=== PATIENT | male | born 1940 | race Caucasian/White ===

== ENCOUNTER 2017-03-06 22:57 | Inpatient (IN) ==
[2017-03-06] MEDS ORDERED: 0.9 % Sodium Chloride 1,000 ML IVC ONE (23:18)
[2017-03-06 23:51] LABS: Hematocrit 27.6 % (37.5-50.1); Hemoglobin 8.7 g/dL (12.9-16.9); Mean Corpuscular HGB Conc 31.5 g/dL (31.6-35.5); Mean Corpuscular Hemoglobin 25.9 pg (28.0-33.3); Mean Corpuscular Volume 82.1 fL (83.0-100.0); Mean Platelet Volume 9.7 fL (9.4-12.4); Platelet Count 149 K/mcL (140-400); Red Blood Count 3.36 M/mcL (4.19-5.50); Red Cell Distribution Width 21.1 % (11.5-14.5)
[2017-03-06 23:56] LABS: INR 1.1; Prothrombin Time 11.6 Seconds (9.4-12.1)
[2017-03-06 23:58] LABS: Activated Partial Thrombo Time 53.3 Seconds (26.0-36.0)
[2017-03-07 00:05] LABS: Alanine Aminotransferase 32 Units/L (0-55); Albumin 2.3 g/dL (3.5-5.0); Albumin/Globulin Ratio 0.7 (1.1-2.2); Alkaline Phosphatase 97 Units/L (38-126); Aspartate Amino Transferase 24 Units/L (5-34); BUN/Creatinine Ratio 35 (6-26); Bilirubin,Direct 0.3 mg/dL (0.0-0.5); Bilirubin,Indirect 0.5 mg/dL (0.0-1.2); Bilirubin,Total 0.8 mg/dL (0.2-1.2); Blood Urea Nitrogen 27 mg/dL (8-26); Calcium 8.2 mg/dL (8.6-10.8); Carbon Dioxide 25 mEq/L (19-29); Chloride 102 mEq/L (98-109); Globulin 3.2 g/dL (2.4-3.5); Glucose 152 mg/dL (70-99); Magnesium 1.6 mg/dL (1.6-2.6); Osmolality,Calculated 284 (280-300); Phosphorous 2.2 mg/dL (2.3-4.7); Potassium 3.6 mEq/L (3.5-4.5); Sodium 133 mEq/L (136-145); Total Protein 5.5 g/dL (6.0-8.3); eGFR For African Americans > 60 (> 60); eGFR For Non-African Americans > 60 (> 60)
[2017-03-07 00:09] LABS: Anisocytosis 2+ (Not Present); Microcytosis Present (Not Present); Platelet Estimate Normal (Normal); Reactive Lymphocytes Present (Not Present)
[2017-03-07 00:10] LABS: Polychromasia 1+ (Not Present)
[2017-03-07 00:16] LABS: Lymphocytes # 0.8 K/mcL (0.6-4.6)
--- NOTE | 2017-03-07 00:30 | Emergency Department Note ---
Disposition Clinical Impression: Anemia Disposition: Admitted As Inpatient Condition: Fair Referrals: NONE,PCP [Non-Partnered Physician] - Forms: Work/School Release, ED Satisfaction Letter Time of Disposition: 02:16 General Adult HPI - General Chief complaint: ED General Medical Stated complaint: low BP Time Seen by Provider: 03/06/17 23:12 Source: patient, EMS Mode of arrival: private vehicle Limitations: no limitations Nursing Notes Reviewed: Yes Vital Signs Reviewed: Yes ( ) - History of Present Illness HPI Narrative: 76-year-old male presents to the emergency department from an extended care facility with complaint of low blood pressure. 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 Patient states that he has a feeding tube in place and "they gave me too much food and after it back up." Patient states that while at the [facility] facility they checked his blood pressure and was sent to the emergency department via EMS for further evaluation. Patient has no additional complaints or concerns. He denies any chest pain, shortness of breath, dizziness, lightheadedness. Patient requesting that he be sent back to the facility. Onset (ago): Just [employer] Radiation: non-radiation Pain Scale: 0 Improves with: nothing Worsens with: nothing Associated symptoms: Reports: denies other symptoms Treatments Prior to Arrival: none - Related Data Home Medications Medication Instructions Recorded Confirmed Aspirin 81 mg PO DAILY 11/04/16 02/21/17 Clopidogrel [Plavix] 75 mg PO DAILY 11/04/16 02/21/17 Doxazosin Mesylate [Cardura] 2 mg PO HS 11/04/16 02/21/17 Finasteride [Proscar] 5 mg PO DAILY 11/04/16 02/21/17 Losartan [Cozaar] 25 mg PO DAILY 11/04/16 02/21/17 Metformin HCl [Glucophage] 1,000 mg PO BID 11/04/16 02/21/17 Metoprolol [Lopressor] 50 mg PO BID 11/04/16 02/21/17 Mupirocin Calcium [Bactroban] 1 appl TP TID 11/04/16 02/21/17 Pantoprazole Sodium [Protonix] 40 mg PO DAILY 11/04/16 02/21/17 Simvastatin [Zocor] 40 mg PO HS 11/04/16 02/21/17 Sitagliptin Phosphate [Januvia] 50 mg PO DAILY 11/04/16 02/21/17 Travoprost [Travatan Z] 5 ml OP DAILY 12/20/16 02/21/17 Dorzolamide/Timolol/Pf [Cosopt Pf 1 each OP BID 01/12/17 02/21/17 Eye Drops] Previous Rx's Medication Instructions Recorded Sucralfate [Carafate] 1 gm PO QID #1000 ml 12/20/16 Metoclopramide HCl 5 mg PO QIDAC #120 tablet 01/03/17 LORazepam [Ativan] 1 mg PO Q4HR PRN #30 tablet 01/12/17 Promethazine [Phenergan] 25 mg PO Q6HR PRN #60 tablet 01/12/17 Lactose-Reduced Food [Boost] 237 ml PO BID #60 liquid 01/13/17 Docusate [Colace] 100 mg PO BID #60 capsule 01/16/17 Magic Mouthwash [Magic Mouthwash 10 ml PO QID PRN #473 ml 02/07/17 BLM] Potassium Chloride [K-Tab ER] 20 meq PO BID #60 tablet.er 02/14/17 Morphine Sulfate [Morphine Oral 5 ml PO Q4H PRN #250 ml 02/20/17 Solution] Allergies Allergy/AdvReac Type Severity Reaction Status Date / Time No Known Allergies Allergy Verified 02/20/17 09:08 All systems ED: reviewed and negative except as stated. Constitutional: Denies: fever, chills Cardiovascular: Denies: chest pain, palpitations Respiratory: Denies: cough, dyspnea Gastrointestinal: Denies: abdominal pain, nausea, vomiting Musculoskeletal: Denies: back pain, neck pain Integumentary: Denies: rash, abrasion, lesions Neurological: Denies: headache Psychiatric: Denies: anxiety, depression, suicidal thoughts, homicidal thoughts Endocrine: Denies: fatigue Past Medical History - Past Medical History Attestation: Yes The following information was validated with the patient. Source: patient, nursing notes reviewed Medical history: Reports: arthritis, coronary artery disease, diabetes, GERD, hypertension Surgical history: Reports: angioplasty/stent, cataract Psychiatric history: Reports: no psych history - Social History Smoking Status: Never smoker Smokeless Tobacco Status: No Alcohol use: Reports: none Drug use: Reports: none Physical Exam - General Limitations: no limitations General appearance: alert, in no apparent distress - Head Head exam: atraumatic, normocephalic, normal inspection - Eye Eye exam: Present: normal appearance, PERRL - Neck Neck exam: Present: normal inspection, full ROM, trachea midline - Chest Chest inspection: Present: normal inspection, symmetric chest wall rise - Respiratory Respiratory exam: Present: normal lung sounds bilaterally. Absent: respiratory distress - Cardiovascular Cardiovascular exam: Present: regular rate, normal rhythm, normal heart sounds - Abdominal Exam Abdominal exam: Present: soft, Non-Tender, normal bowel sounds - Rectal Exam Rectal exam: Present: normal inspection, normal rectal tone - Extremities Exam Extremities exam: Present: normal inspection, full ROM. Absent: tenderness, pedal edema - Expanded Lower Extremity Exam Gait: observed and normal - Back Exam Back exam: Present: normal inspection, full ROM. Absent: tenderness - Neurological Exam Neurological exam: Present: alert, oriented X3 - Psychiatric Psychiatric exam: Present: normal affect, normal mood - Skin Skin exam: Present: warm, dry, intact, normal color Course Course Narrative: Patient admitted to hospitalist. Vital Signs Temperature 97.5 F L 03/06/17 23:00 Pulse Rate 108 03/06/17 23:00 Respiratory Rate 18 03/06/17 23:00 Blood Pressure 109/55 03/06/17 23:00 O2 Sat by Pulse Oximetry 98 03/06/17 23:00 Temperature 97.5 F L 03/06/17 23:00 Pulse Rate 93 03/07/17 01:07 Respiratory Rate 12 03/07/17 01:07 Blood Pressure 136/71 03/07/17 01:07 O2 Sat by Pulse Oximetry 98 03/07/17 01:07 Oxygen Delivery Oxygen Delivery Room Air Medical Decision Making - Lab Data Lab results reviewed: Yes I reviewed the patient's lab results. Result diagrams: 03/06/17 23:42 03/06/17 23:42 Lab Results 03/06/17 03/06/17 03/06/17 Range/Units 23:42 23:42 23:42 WBC 3.4 L (4.3-11.1) K/mcL RBC 3.36 L (4.19-5.50) M/mcL Hgb 8.7 L (12.9-16.9) g/dL Hct 27.6 L (37.5-50.1) % MCV 82.1 L (83.0-100.0) fL MCH 25.9 L (28.0-33.3) pg MCHC 31.5 L (31.6-35.5) g/dL RDW 21.1 H (11.5-14.5) % Plt Count 149 (140-400) K/mcL MPV 9.7 (9.4-12.4) fL Immature Gran % Test Not Performed Seg Neutrophils % 58.0 % Lymphocytes % 22.0 % Monocytes % Test Not Performed Eosinophils % Test Not Performed Basophils % Test Not Performed Neutrophils # 2.0 (1.6-8.9) K/mcL Lymphocytes # 0.8 (0.6-4.6) K/mcL Monocytes # TISSUE PACKER Eosinophils # TISSUE PACKER Basophils # TISSUE PACKER Reactive Lymphocytes Present A (Not Present) Platelet Estimate Normal (Normal) Polychromasia 1+ A (Not Present) Anisocytosis 2+ A (Not Present) Microcytosis Present A (Not Present) PT 11.6 (9.4-12.1) Seconds INR 1.1 APTT 53.3 H (26.0-36.0) Seconds Sodium 133 L (136-145) mEq/L Potassium 3.6 (3.5-4.5) mEq/L Chloride 102 (98-109) mEq/L Carbon Dioxide 25 (19-29) mEq/L BUN 27 H (8-26) mg/dL Creatinine 0.77 (0.72-1.25) mg/dL Est GFR ( Amer) > 60 (> 60) Est GFR (Non-Af Amer) > 60 (> 60) BUN/Creatinine Ratio 35 H (6-26) Glucose 152 H (70-99) mg/dL Calculated Osmolality 284 (280-300) Lactic Acid (0.5-2.2) mmol/L Calcium 8.2 L (8.6-10.8) mg/dL Phosphorus 2.2 L (2.3-4.7) mg/dL Magnesium 1.6 (1.6-2.6) mg/dL Total Bilirubin 0.8 (0.2-1.2) mg/dL Direct Bilirubin 0.3 (0.0-0.5) mg/dL Indirect Bilirubin 0.5 (0.0-1.2) mg/dL AST 24 (5-34) Units/L ALT 32 (0-55) Units/L Alkaline Phosphatase 97 (38-126) Units/L Troponin I (0-0.03) ng/mL Serum Total Protein 5.5 L (6.0-8.3) g/dL Albumin 2.3 L (3.5-5.0) g/dL Globulin 3.2 (2.4-3.5) g/dL Albumin/Globulin Ratio 0.7 L (1.1-2.2) Stool Occult Blood (Negative) 03/06/17 03/06/17 03/07/17 Range/Units 23:42 23:42 01:55 WBC (4.3-11.1) K/mcL RBC (4.19-5.50) M/mcL Hgb (12.9-16.9) g/dL Hct (37.5-50.1) % MCV (83.0-100.0) fL MCH (28.0-33.3) pg MCHC (31.6-35.5) g/dL RDW (11.5-14.5) % Plt Count (140-400) K/mcL MPV (9.4-12.4) fL Immature Gran % Seg Neutrophils % % Lymphocytes % % Monocytes % Eosinophils % Basophils % Neutrophils # (1.6-8.9) K/mcL Lymphocytes # (0.6-4.6) K/mcL Monocytes # Eosinophils # Basophils # Reactive Lymphocytes (Not Present) Platelet Estimate (Normal) Polychromasia (Not Present) Anisocytosis (Not Present) Microcytosis (Not Present) PT (9.4-12.1) Seconds INR APTT (26.0-36.0) Seconds Sodium (136-145) mEq/L Potassium (3.5-4.5) mEq/L Chloride (98-109) mEq/L Carbon Dioxide (19-29) mEq/L BUN (8-26) mg/dL Creatinine (0.72-1.25) mg/dL Est GFR ( Amer) (> 60) Est GFR (Non-Af Amer) (> 60) BUN/Creatinine Ratio (6-26) Glucose (70-99) mg/dL Calculated Osmolality (280-300) Lactic Acid 1.6 (0.5-2.2) mmol/L Calcium (8.6-10.8) mg/dL Phosphorus (2.3-4.7) mg/dL Magnesium (1.6-2.6) mg/dL Total Bilirubin (0.2-1.2) mg/dL Direct Bilirubin (0.0-0.5) mg/dL Indirect Bilirubin (0.0-1.2) mg/dL AST (5-34) Units/L ALT (0-55) Units/L Alkaline Phosphatase (38-126) Units/L Troponin I 0.01 (0-0.03) ng/mL Serum Total Protein (6.0-8.3) g/dL Albumin (3.5-5.0) g/dL Globulin (2.4-3.5) g/dL Albumin/Globulin Ratio (1.1-2.2) Stool Occult Blood Negative (Negative) - Radiology Data Radiology results reviewed: Yes I reviewed the patient's radiology results.
[2017-03-07] MEDS ORDERED: Pantoprazole 40 MG VIAL IVP ONE (00:45)
[2017-03-07] MEDS: Pantoprazole 40 MG in 0.9 % Sodium Chloride Mini Bag 100 ML IVC SCH ×5 (01:30→20:44)
[2017-03-07] MEDS ORDERED: Ondansetron 4 MG/2 ML VIAL IVP PRN (02:40)
[2017-03-07] MEDS ORDERED: Naloxone 0.4 MG/ML INJ IVP PRN (02:40)
[2017-03-07] MEDS ORDERED: Dextrose Gel 15 GM PO PRN ×2 (02:43)
[2017-03-07] MEDS ORDERED: *HR* Dextrose 50 % in Water (Syg) 50 ML SYRINGE IVP PRN (02:43)
[2017-03-07] MEDS ORDERED: D5% in Water 1,000 ML IVC PRN (02:43)
[2017-03-07] MEDS: 0.9 % Sodium Chloride 1,000 ML IVC SCH ×3 (03:36→23:30)
--- NOTE | 2017-03-07 03:40 | Internal Med History&Physical ---
Date of Encounter: 03/07/17 Time of Encounter: 02:00 Assessment and Plan (1) On tube feeding diet Current visit: Yes Status: Acute The patient was placed on NG tube in [facility]. Tube feeding started there but patient seems not tolerate well. Chest x-ray today recommend advancing the tube. - Patient has poor intake for weeks. - Previous chart was reviewed. Patient was seen by oncology and GI in our hospital. Has been planned for esophageal stent. - Patient may need a PEG tube or esophageal stent. We will consult oncology and GI for further management. - We will consult vacuum drier tender as well. (2) Diabetes Current visit: Yes Status: Acute Will cover patient with sliding scale. 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 By mouth medication is on hold at this point because of nothing by mouth. Continue close monitoring Qualifiers: Coronary Disease-Associated Artery/Lesion type: [place] artery [place] vs. transplanted heart: [place] heart Associated angina: without angina Qualified Code(s): I25.10 - Atherosclerotic heart disease of [place] coronary artery without angina pectoris (4) DVT prophylaxis Current visit: Yes Status: Acute Heparin subcutaneously (5) Adenocarcinoma of esophagus Current visit: No Status: Acute Patient is on chemotherapy and radiation therapy. We will consult oncology for further management. (6) Anemia Current visit: Yes Status: Acute Guaiac test negative. Probably due to poor intake and chemotherapy. - We will place anemia Workup and follow result. - Closer monitor H&H Qualifiers: Anemia type: unspecified type Qualified Code(s): D64.9 - Anemia, unspecified (7) Dehydration Current visit: Yes Status: Acute Patient had hypotension and dizziness. Poor intake for weeks. Elevated BUN. Consider dehydration. - We will continue IV fluid and follow-up BMP. - Closer monitor vital signs. Internal Medicine - H&P: HPI Chief complaint: poor intake, dizziness Admitted From: Long-term Nursing Facility Plans for Post Hospital Care: Home History of present illness: Mr. Tapia is a 76 year old male with history of CAD S/P stent, diabetes, esophagus and gastric cancer present to ER for weakness and hypotension. Patient was recently admitted to [facility] for esophageal cancer. He was placed a feeding tube in [facility]. However, per pt he cannot tolerate the tube feeding well. He has poor intake for weeks. Today patient to feel dizziness. He denies loss of consciousness or syncope. He was found hypotension in a rehabilitation center, reportedly systolic blood pressure at 70s. Patient was sent to ER and his blood pressure at 100s. Patient was found anemia. Patient was admitted for further management. Past Med Surg Social Fam HX - Past Medical History Medical history: arthritis, coronary artery disease, diabetes, GERD, hypertension, myocardial infarction Psychiatric history: no psych history - Past Surgical History Surgical History: angioplasty/stent, cataract - Social History Smoking Status: Never smoker Smokeless Tobacco Status: No Alcohol use: none Drug use: none Internal Medicine - H&P: Meds Clopidogrel [Plavix] 75 mg PO DAILY 11/04/16 [History] Doxazosin Mesylate [Cardura] 2 mg PO HS 11/04/16 [History] Finasteride [Proscar] 5 mg PO DAILY 11/04/16 [History] Losartan [Cozaar] 25 mg PO DAILY 11/04/16 [History] Metformin HCl [Glucophage] 1,000 mg PO BID 11/04/16 [History] Metoprolol [Lopressor] 50 mg PO BID 11/04/16 [History] Mupirocin Calcium [Bactroban] 1 appl TP TID 11/04/16 [History] Pantoprazole Sodium [Protonix] 40 mg PO DAILY 11/04/16 [History] RX: Aspirin 81 mg PO DAILY 11/04/16 [History] Simvastatin [Zocor] 40 mg PO HS 11/04/16 [History] Sitagliptin Phosphate [Januvia] 50 mg PO DAILY 11/04/16 [History] Sucralfate [Carafate] 1 gm PO QID #1000 ml 12/20/16 [Rx] Travoprost [Travatan Z] 5 ml OP DAILY 12/20/16 [History] RX: Metoclopramide HCl 5 mg PO QIDAC #120 tablet 01/03/17 [Rx] Dorzolamide/Timolol/Pf [Cosopt Pf Eye Drops] 1 each OP BID 01/12/17 [History] LORazepam [Ativan] 1 mg PO Q4HR PRN #30 tablet 01/12/17 [Rx] Promethazine [Phenergan] 25 mg PO Q6HR PRN #60 tablet 01/12/17 [Rx] Lactose-Reduced Food [Boost] 237 ml PO BID #60 liquid 01/13/17 [Rx] RX: Docusate [Colace] 100 mg PO BID #60 capsule 01/16/17 [Rx] RX: Magic Mouthwash [Magic Mouthwash BLM] 10 ml PO QID PRN #473 ml 02/07/17 [Rx] RX: Potassium Chloride [K-Tab ER] 20 meq PO BID #60 tablet.er 02/14/17 [Rx] Morphine Sulfate [Morphine Oral Solution] 5 ml PO Q4H PRN #250 ml 02/20/17 [Rx] 3 Allergy/AdvReac Type Severity Reaction Status Date / Time No Known Allergies Allergy Verified 02/20/17 09:08 All Systems PM: A 10-system review of systems was performed and is negative for pertinent findings except as documented above in the HPI. - Constitutional Vitals: Temp Pulse Resp BP Pulse Ox 97.5 F L 100 16 121/62 99 03/07/17 03:16 03/07/17 03:16 03/07/17 03:16 03/07/17 03:16 03/07/17 03:16 General appearance: Present: A&O X 3, no acute distress, answers questions appropriately - Head Head exam: Present: atraumatic, normocephalic - Eye Eye exam: Present: PERRL, conjuntiva pink, sclera anicteric Pupils: Present: PERRL - Neck Neck exam general surgery: Present: supple, trachea midline. Absent: lymphadenopathy - Respiratory Respiratory exam: Present: CTAB. Absent: accessory muscle use, rales, rhonchi, wheezes - Cardiovascular Cardiovascular exam: Present: RRR, +S1, +S2. Absent: diastolic murmur, gallop, rubs, systolic murmur - GI/Abdominal GI/Abdominal exam: Present: normal bowel sounds, soft, no peritoneal signs. Absent: distended, tenderness - Extremities Exam Extremities exam: Present: warm, radial pulses palpable and symmetrical. Absent : calf tenderness, cyanotic, pedal edema - Neurological Exam Neurological exam: Present: CN II-XII intact, oriented X3, no focal deficits. Absent: pronater drift, facial droop, speech deficit - Skin Skin exam: Present: dry, intact Internal Med - H&P Results - Labs CBC & Chem 7: 03/06/17 23:42 03/06/17 23:42
[2017-03-07 04:45] LABS: Bilirubin,Urine Negative (Negative); Blood,Urine Negative (Negative); Clarity,Urine Clear (Clear); Color,Urine Yellow (Yellow); Glucose,Urine (UA) Normal (Normal); Ketones,Urine 15 mg/dL (Negative); Leukocyte Esterase,Urine Negative (Negative); Nitrite,Urine Negative (Negative); Protein,Urine 30 mg/dL (Neg-Trace); Urobilinogen,Urine Normal (Normal)
[2017-03-07 04:53] LABS: Hyaline Casts,Urine None Seen per lpf (None-Few); Squamous Epithelial Cell,Urine Few per lpf (None-Few)
[2017-03-07 04:54] LABS: Bacteria,Urine Few per hpf (None-Few); RBC,Urine 0-3 per hpf (0-3); WBC,Urine 0-3 per hpf (0-3)
[2017-03-07 05:14] LABS: Basophils % 0.7 %; Eosinophils % 1.4 %; Hematocrit 27.4 % (37.5-50.1); Hemoglobin 8.6 g/dL (12.9-16.9); Immature Granulocytes % 0.3 % (0-4); Lymphocytes % 34.4 %; Mean Corpuscular HGB Conc 31.4 g/dL (31.6-35.5); Mean Corpuscular Hemoglobin 26.5 pg (28.0-33.3); Mean Corpuscular Volume 84.3 fL (83.0-100.0); Mean Platelet Volume 10.1 fL (9.4-12.4); Monocytes # 0.3 K/mcL (0.0-1.3); Monocytes % 8.7 %; Neutrophils # 1.6 K/mcL (1.6-8.9); Platelet Count 137 K/mcL (140-400); Red Blood Count 3.25 M/mcL (4.19-5.50); Red Cell Distribution Width 21.3 % (11.5-14.5); Segmented Neutrophils % 54.5 %
[2017-03-07 05:24] LABS: % Iron Saturation 24 % (20-55); BUN/Creatinine Ratio 30 (6-26); Blood Urea Nitrogen 21 mg/dL (8-26); Calcium 7.7 mg/dL (8.6-10.8); Carbon Dioxide 24 mEq/L (19-29); Chloride 104 mEq/L (98-109); Glucose 141 mg/dL (70-99); Iron 41 mcg/dL (65-175); Magnesium 1.5 mg/dL (1.6-2.6); Osmolality,Calculated 283 (280-300); Potassium 3.3 mEq/L (3.5-4.5); Sodium 134 mEq/L (136-145); Transferrin 124 mg/dL (174-364); eGFR For African Americans > 60 (> 60); eGFR For Non-African Americans > 60 (> 60)
[2017-03-07 05:32] LABS: Anisocytosis 1+ (Not Present); Microcytosis Present (Not Present); Platelet Estimate Slight Decrease (Normal); Reactive Lymphocytes Present (Not Present)
[2017-03-07 05:40] LABS: Ferritin 341 ng/ml (22-275)
[2017-03-07 05:53] LABS: Folate 7.9 ng/mL (7.0-31.4)
[2017-03-07] MEDS: *HR* Heparin 5,000 UNIT/ML VIAL SQ SCH ×2 (06:00→18:10)
[2017-03-07] MEDS: Insulin LISPRO 300 UNITS/3 ML VIAL SQ SCH ×3 (06:01→18:10)
--- NOTE | 2017-03-07 10:19 | Oncology Inp Consult Note ---
Date of Encounter: 03/07/17 Time of Encounter: 10:05 Assessment and Plan (1) Malnutrition Status: Acute Assessment and plan: - Worsening based on clinical presentation ( not solid PO intake for the last 3 weeks, persistent odinophagia), recent episode of dizziness likely due to dehydration, and labs revealing worsening albumin to 2.3, with normal values back in January 23 at the start of chemo radiation. - As discussed with Dr. Plunkett at [facility], the initial considerations for esophageal stent placement or J-tube were cancelled, in view that this would complicate his surgical procedure. Initial plan would consist on completion neoaduvant chemoradiation and complete re staging PET scan. If PET was consistent with good response, he would be considered for surgical resection. As per my conversation with Dr. Plunkett at this time in view of his acute issues he is not a surgical candidate, but once hopefully his nutritional status has improved, surgical management may be an option. His neajuvant chemoradiation management has been interrupted, so he will need to follow up with Dr. Savage and Dr. Goodman ( radiation oncology and medical oncology respectively) to discuss if resuming chemoradiation is recommended. - During the current admission, I'd recommend against esophagus stent placement or J-tube in view that would complicate potential surgical resection. - If his clinical status deteriorates, he should be transferred to [facility] for further management. - I'll inform his medical oncologist Dr. Goodman and Radiation oncologist Dr. Savage about his ongoing issues. - Consider swallow evaluation and supportive management with TPN if unable to keep the daily calory requirements. Qualifiers: Malnutrition type: protein-calorie malnutrition Protein-calorie malnutrition severity: unspecified severity Qualified Code(s): E46 - Unspecified protein-calorie malnutrition (2) Dysphagia Status: Acute Assessment and plan: - Overall worsening for solids, although still able to tolerate fluids. - As described above, consider swallow evaluation +-TPN if unable to keep daily calory requirements. Qualifiers: Dysphagia type: other dysphagia Qualified Code(s): R13.19 - Other dysphagia Code(s): R13.10 - Dysphagia, unspecified SNOMED Code(s): 32072636, 742113812 (3) Esophageal cancer Status: Acute Assessment and plan: - Started on chemoradiation on January 23 with curative intent. Chemoradiation on hold since February 13 due to worsening dysphagia and malnutrition. - As described above, please arrange for follow up with radiation oncology and medical oncology to resume chemoradiation upon discharge. Qualifiers: Malignant neoplasm of esophagus location: lower third Qualified Code(s): C15.5 - Malignant neoplasm of lower third of esophagus Code(s): C15.9 - Malignant neoplasm of esophagus, unspecified SNOMED Code(s): 928890248, 547542777 (4) HTN (hypertension) Status: Chronic Assessment and plan: - Recent episode of hypotension. Now BP running in the high 90s. He remains asymptomatic while resting. Qualifiers: Hypertension type: essential hypertension Qualified Code(s): I10 - Essential (primary) hypertension Code(s): I10 - Essential (primary) hypertension SNOMED Code(s): 96748732 (5) Diabetes Status: Acute Assessment and plan: - Recent Hb A1c within acceptable range: t 7.1. - Management as per primary team Qualifiers: Diabetes mellitus type: type 2 Diabetes mellitus complication status: without complication Diabetes mellitus watermaster insulin use: without senior living use Qualified Code(s): E11.9 - Type 2 diabetes mellitus without complications Code(s): E11.9 - Type 2 diabetes mellitus without complications SNOMED Code(s) : 52423773 - Data of Consult Requesting Physician: Timmy North MD Primary Care Provider: Forest Giles MD - Consult Narrative Reason for consult: management of esophageal cancer History of present illness: Chief complaint: dysphagia. Mr. 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 Mr. Tapia was started on neoadjuvant chemoradiation on January 23, 2017 for management of his stage II/III esophageal adenocarcinoma with carbo/taxol. He tolerated the first treatments, but his treatments on February 13 and were held due to issues related to malnutrition and dysphagia. He reports that he has not eaten any solid for the last 3 weeks at least, however he has been able to tolerate fluids and puree like diet. He reports that yesterday while in Rehab he experienced dizziness, found to be hypotensive and was transferred to our medical center for further management. He report that he has had a feeding tube in place for approximately 14 days and that recently there were issues of poor tolerance to feeding tubes, so these had to be held temporally. At tthe time of the visit he denies nausea, abdominal pain. He is being followed as outpatient by medical oncologist Dr. Goodman and radiation oncologist Dr. Savage. He was referred to Dr. Art to consider an EGD with stent placement, with the option of placing a PEG tube if the stent was not feasible. He reports that in view that a gastric ulcer was noticed, it was decided to hold off on the procedure to place a stent or PEG tube. He describes that his dysphagia is associated with odinophagia, usually at the end of the swallow process, with pain a the level of the epigastric area. His dysphagia unable to eat solids, but he tolerate fluids and puree like consistency meals. he reports having normal urinary emission and denies recent issues of constipation or diarrhea. He denies associated hematemesis, hematochezia, or melena. Upon review of his records, I noticed that his serum albumin has been decreasing gradually, with his most recent value from 03/06 down to 2.3 mg/dl. REVIEW AND SUMMARY OF OLD RECORDS: I reviewed the patient's chart, including his prior oncology notes, imaging report, staging studies, labs and chemo radiation treatments. As described above , Mr. Tapia was started on chemoradiation on January 23 and his clinical course has been complicated with recurrent issues related to malnutrition and dysphagia that has required to hold off his chemotherapy ( curative intent). Past Med Surg Social Fam HX - Past Medical History Medical history: arthritis, coronary artery disease, diabetes, GERD, hypertension, myocardial infarction Psychiatric history: no psych history - Past Surgical History Surgical History: angioplasty/stent, cataract - Social History Smoking Status: Never smoker Smokeless Tobacco Status: No Alcohol use: none Drug use: none Medications and Allergies Aspirin 81 mg PO DAILY 11/04/16 [History] Clopidogrel [Plavix] 75 mg PO DAILY 11/04/16 [History] Doxazosin Mesylate [Cardura] 2 mg PO HS 11/04/16 [History] Finasteride [Proscar] 5 mg PO DAILY 11/04/16 [History] Losartan [Cozaar] 25 mg PO DAILY 11/04/16 [History] Metformin HCl [Glucophage] 1,000 mg PO BID 11/04/16 [History] Metoprolol [Lopressor] 50 mg PO BID 11/04/16 [History] Mupirocin Calcium [Bactroban] 1 appl TP TID 11/04/16 [History] Pantoprazole Sodium [Protonix] 40 mg PO DAILY 11/04/16 [History] Simvastatin [Zocor] 40 mg PO HS 11/04/16 [History] Sitagliptin Phosphate [Januvia] 50 mg PO DAILY 11/04/16 [History] Sucralfate [Carafate] 1 gm PO QID #1000 ml 12/20/16 [Rx] Travoprost [Travatan Z] 5 ml OP DAILY 12/20/16 [History] Metoclopramide HCl 5 mg PO QIDAC #120 tablet 01/03/17 [Rx] Dorzolamide/Timolol/Pf [Cosopt Pf Eye Drops] 1 each OP BID 01/12/17 [History] Docusate [Colace] 100 mg PO BID #60 capsule 01/16/17 [Rx] Magic Mouthwash [Magic Mouthwash BLM] 10 ml PO QID PRN #473 ml 02/07/17 [Rx] Morphine Sulfate [Morphine Oral Solution] 5 ml PO Q4H PRN #250 ml 02/20/17 [Rx] 3 Allergy/AdvReac Type Severity Reaction Status Date / Time No Known Allergies Allergy Verified 02/20/17 09:08 Constitutional: Present: fatigue, malaise, weakness. Absent: fever(s), headache (s), lethargy Eyes: Absent: change in vision, discharge Nose, mouth and throat: Present: dizziness Cardiovascular: Absent: chest pain with activity, dyspnea on exertion, edema, irregular heart rhythm, leg edema Respiratory: Absent: cough, dyspnea, hemoptysis, wheezing Gastrointestinal: Present: abdominal pain, dysphagia, odynophagia. Absent: change in bowel habits, change in stool character, coffee ground emesis, constipation, fecal incontinence, hematemesis, hematochezia, melena, nausea Musculoskeletal: Absent: joint swelling Integumentary: Absent: bleeding lesions Neurological: Absent: behavioral changes, burning sensations Psychiatric: Absent: confusion Endocrine: Absent: palpitations, polydipsia Hematologic/Lymphatic: Present: as per HPI Oncology - Exam - Constitutional Vitals: Temp Pulse Resp BP Pulse Ox 98.3 F 97 17 99/55 95 03/07/17 06:29 03/07/17 06:29 03/07/17 06:29 03/07/17 06:29 03/07/17 06:29 - Head Head exam: Present: normal inspection - Eye Eye exam: Present: EOMI - ENT Additional comments: Small area of approximately 1 cm in the superior palate of white appearance, suggestive of superficial ulceration. - Neck Neck exam: Absent: lymphadenopathy, meningismus, tenderness - Respiratory Respiratory exam: Present: CTAB. Absent: prolonged expiratory phase, wheezes - Cardiovascular Cardiovascular exam: Present: RRR. Absent: gallop, irregular rhythm - GI/Abdominal GI/Abdominal exam: Present: normal bowel sounds, tenderness (Mild tenderness with palpation in the epigastriic area. no rebound tenderness. ). Absent: organomegaly, pulsatile mass - Extremities Exam Extremities exam: Present: normal inspection. Absent: pedal edema, tenderness - Psychiatric Psychiatric exam: Present: normal affect, normal mood - Skin Skin exam: Present: normal color. Absent: petechiae Oncology - Results Labs: Short CBC 03/07/17 Range/Units 04:27 WBC 2.9 L (4.3-11.1) K/mcL Hgb 8.6 L (12.9-16.9) g/dL Hct 27.4 L (37.5-50.1) % Plt Count 137 L (140-400) K/mcL Neutrophils # 1.6 (1.6-8.9) K/mcL BMP 03/07/17 04:27 Sodium 134 L Potassium 3.3 L Chloride 104 Carbon Dioxide 24 BUN 21 Creatinine 0.70 L Glucose 141 H Calcium 7.7 L Urine 03/07/17 Range/Units 04:00 Urine Color Yellow (Yellow) Urine Clarity Clear (Clear) Urine pH 7.0 (5.0-8.0) pH Units Ur Specific [place] 1.030 H (1.010-1.025) Urine Protein 30 H (Neg-Trace) mg/dL Urine Glucose (UA) Normal (Normal) mg/dL Labs revealed worsening albuminemia consistent with worsening malnutrition. Consult Discharge Plan - Plan Referrals: Forest Giles MD [Primary Care Provider] -
--- NOTE | 2017-03-07 11:47 | Internal Med Progress Note ---
<Matthieu Hill - Last Filed: 03/07/17 18:09> Date of Encounter: 03/07/17 Time of Encounter: 13:00 - Assessment and plan (1) On tube feeding diet Current Visit: Yes Status: Acute Assessment and plan: Patient is tolerating the NG tube. Oncology recommends against esophageal stent because it could complicate his surgical resection of his esophageal carcinoma. They recommend supportive therapy for now. Follow-up appointment with Dr. Goodman and Dr. Savage after discharge to resume chemotherapy. (2) Hypokalemia Current Visit: Yes Status: Acute Assessment and plan: Patient's potassium dropped from 3.6 to 3.3. Was given 40 meq K+ elixir PO once. (3) Hypomagnesemia Current Visit: Yes Status: Acute Assessment and plan: Patient's magnesium was 1.5. Was given 2 gm magnesium. (4) Anemia Current Visit: Yes Status: Acute Assessment and plan: [place] test negative. Hgb dropped from 8.7 to 8.6 since yesterday. Anemia likely secondary to poor intake and chemotherapy. Continue to monitor. Qualifiers: Anemia type: unspecified type Qualified Code(s): D64.9 - Anemia, unspecified (5) CAD (coronary artery disease) Current Visit: Yes Status: Acute Assessment and plan: Statin, aspirin, and plavix have been ordered to be resumed tomorrow morning. Qualifiers: Coronary Disease-Associated Artery/Lesion type: [place] artery [place] vs. transplanted heart: [place] heart Associated angina: without angina Qualified Code(s): I25.10 - Atherosclerotic heart disease of [place] coronary artery without angina pectoris (6) DVT prophylaxis Current Visit: Yes Status: Acute Assessment and plan: On subcutaneous heparin. (7) Dehydration Current Visit: Yes Status: Acute Assessment and plan: Creatinine has dropped from 0.77 to .70. Continue IV fluids and monitor. (8) Diabetes Current Visit: Yes Status: Acute Assessment and plan: Patient on sliding scale. Qualifiers: Diabetes mellitus type: type 2 Diabetes mellitus complication status: without complication Diabetes mellitus nursing home insulin use: without medical terminologist use Qualified Code(s): E11.9 - Type 2 diabetes mellitus without complications (9) Adenocarcinoma of esophagus Current Visit: No Status: Acute Assessment and plan: On chemo and radiation therapy. Oncology recommends against esophageal stents. Follow-up appoint with Dr. Goodman and Dr. Savage. (10) History of hypertension Current Visit: Yes Status: Acute Assessment and plan: BP home meds of lopressor and losartan on hold secondary to hypotension. - Time Spent With Patient less than 15 minutes - Subjective Interval history: Spoke to patient today and he says that he is tolerating the NG tube. He admits to some diarrhea, but he denies any blood in his stool. He also denies any fever , chills, nausea, vomiting, abdominal pain, headaches, light headedness, chest pain, shortness of breath, vision changes, or syncope. - Constitutional Vitals: Temp Pulse Resp BP Pulse Ox 99.2 F 92 18 108/62 97 03/07/17 11:42 03/07/17 11:42 03/07/17 11:42 03/07/17 11:42 03/07/17 11:42 General appearance: Present: A&O X 3, no acute distress, answers questions appropriately - Respiratory Respiratory exam: Present: CTAB. Absent: rhonchi, wheezes - Cardiovascular Cardiovascular exam: Present: +S1, +S2. Absent: JVD Additional comments: Borderline tachycardia. No murmurs appreciated. - GI/Abdominal GI/Abdominal exam: Present: normal bowel sounds, soft, tenderness. Absent: bruit, guarding, mass Additional comments: Tenderness to RLQ with deep palpation. - Extremities Exam Extremities exam: Absent: pedal edema Additional comments: Pulses intact in lower extremities bilaterally. Internal Medicine: Result - Labs CBC & Chem 7: 03/07/17 04:27 03/07/17 04:27 Labs: Short CBC 03/07/17 Range/Units 04:27 WBC 2.9 L (4.3-11.1) K/mcL Hgb 8.6 L (12.9-16.9) g/dL Hct 27.4 L (37.5-50.1) % Plt Count 137 L (140-400) K/mcL Neutrophils # 1.6 (1.6-8.9) K/mcL BMP 03/07/17 04:27 Sodium 134 L Potassium 3.3 L Chloride 104 Carbon Dioxide 24 BUN 21 Creatinine 0.70 L Glucose 141 H Calcium 7.7 L Urine 03/07/17 Range/Units 04:00 Urine Color Yellow (Yellow) Urine Clarity Clear (Clear) Urine pH 7.0 (5.0-8.0) pH Units Ur Specific [place] 1.030 H (1.010-1.025) Urine Protein 30 H (Neg-Trace) mg/dL Urine Glucose (UA) Normal (Normal) mg/dL Laboratory Tests 03/06/17 03/07/17 23:42 04:27 Magnesium 1.6 1.5 L - ABG Interpretation ABG results: PT/INR, D-dimer PT 11.6 Seconds (9.4-12.1) 03/06/17 23:42 - Impressions Impressions KUB X-Ray 03/07/17 08:52 IMPRESSION: Feeding tube tip projects at the GE junction. It could be advanced. D/ / Jaya Hernandez MD / Jaya Hernandez MD Interpreting Provider: Jaya Hernandez MD Consult Discharge Plan - Plan Referrals: Forest Giles MD [Primary Care Provider] - <Cordell Quinones - Last Filed: 03/07/17 18:16> Date of Encounter: 03/07/17 - Constitutional Vitals: Temp Pulse Resp BP Pulse Ox 97.9 F 107 18 119/66 97 03/07/17 15:22 03/07/17 15:22 03/07/17 15:22 03/07/17 15:22 03/07/17 15:22 Internal Medicine: Result - Labs CBC & Chem 7: 03/07/17 04:27 03/07/17 04:27 Labs: Short CBC 03/07/17 Range/Units 04:27 WBC 2.9 L (4.3-11.1) K/mcL Hgb 8.6 L (12.9-16.9) g/dL Hct 27.4 L (37.5-50.1) % Plt Count 137 L (140-400) K/mcL Neutrophils # 1.6 (1.6-8.9) K/mcL BMP 03/07/17 04:27 Sodium 134 L Potassium 3.3 L Chloride 104 Carbon Dioxide 24 BUN 21 Creatinine 0.70 L Glucose 141 H Calcium 7.7 L Urine 03/07/17 Range/Units 04:00 Urine Color Yellow (Yellow) Urine Clarity Clear (Clear) Urine pH 7.0 (5.0-8.0) pH Units Ur Specific [place] 1.030 H (1.010-1.025) Urine Protein 30 H (Neg-Trace) mg/dL Urine Glucose (UA) Normal (Normal) mg/dL - ABG Interpretation ABG results: PT/INR, D-dimer PT 11.6 Seconds (9.4-12.1) 03/06/17 23:42 - Impressions Impressions KUB X-Ray 03/07/17 08:52 IMPRESSION: Feeding tube tip projects at the GE junction. It could be advanced. D/ / Jaya Hernandez MD / Jaya Hernandez MD Interpreting Provider: Jaya Hernandez MD - Attending Attestation I examined this patient and my medical decision-making was reviewed with the Resident Physician. I agree with the documented findings, disposition and treatment plan as described except to the extent set forth below. Patient admitted for vomiting and nausea and poor intake. Patient stated that his NG tube feeds were increased, and this caused him to have the vomiting and nausea. He states he feels better now and says he is back to baseline. He does follow up at [facility] [place] for esophageal cancer. He is hemodynamically stable at this time. He has no other acute events or complications at this time. No other complaints. No fever. Anticipate discharge in a.m. Heart rate 107, temperature 97.9, blood pressure 119/66, O2 sat 97%. Heart S1-S2 positive. Lungs bilateral good entry. Abdomen soft nontender.
--- NOTE | 2017-03-07 11:54 | Gastroenterology Consult Note ---
<Jessica Ledesma - Last Filed: 03/07/17 11:57> Date of Encounter: 03/07/17 Time of Encounter: 11:05 - Assessment and plan (1) Adenocarcinoma of esophagus Status: Acute Assessment and plan: Patient has scope by Dr. Art 02/2017 showing the esophageal carcinoma. Patient has had dysphagia, therefore, [facility] placed a Dobhoff to facilitate tube feedings. (2) On tube feeding diet Status: Acute Assessment and plan: Discuss with Dr. Jeffers on PEG vs. stent, or reduce flow of tube feeding so patient may tolerate. - Time Spent With Patient Total time spent is greater than 50% in coordination of care (as documented) at patient's floor/unit and/or counseling patient: less than 15 minutes GI History of Present Illness - Data of Consult Patient: known to practice within the last 3 years Consult date: 03/07/17 Requesting Physician: Timmy North MD - Consult Narrative Reason for consult: PEG or esophageal stent History of present illness: Mr. Tapia is a 76 year old male with PMH of CAD S/P stent, diabetes, esophagus and gastric cancer who presented to ER for weakness and hypotension by EMS from [facility]. Patient was recently admitted to [facility] for esophageal cancer. He was placed a feeding tube in [facility]. However, per pt he cannot tolerate the tube feeding well if run at higher rate, he can tolerate rate of 45 mls, but it was set on 60 and 70 mls, per the patient, at the ECF, causing reflux. He has poor intake for weeks. He states he got out of bed to use the restroom yesterday, while seated on the commode he began to feel dizzy and notified staff. He denies loss of consciousness or syncope. He was found to be hypotensive in the ECF with a reported SBP in the 70s. a rehabilitation center, reportedly systolic blood pressure at 70s. He did have a drop in hgb since last admission at [facility] but denies noting any overt GIB. Moves bowels 3-4 x daily. Hemocult was negative. One episode of vomiting prior to arrival in ED. EGD: 02/2017 - [place] Past Med Surg Social Fam HX - Past Medical History Medical history: arthritis, coronary artery disease, diabetes, GERD, hypertension, myocardial infarction Psychiatric history: no psych history - Past Surgical History Surgical History: angioplasty/stent, cataract - Social History Smoking Status: Never smoker Smokeless Tobacco Status: No Alcohol use: none Drug use: none - Gastrointestinal NSAID use: none noted Anticoagulation Use: none noted Number of BM Per Day: 3-4 Gastrointestinal: Present: dyspepsia, nausea, vomiting - Constitutional Constitutional: weight loss - EENT Eyes: as per HPI Ears: Present: as per HPI Nose, mouth and throat: Present: dysphagia - Cardiovascular Cardiovascular ROS: Present: as per HPI - Respiratory Respiratory IM: Present: as per HPI - Neurological ROS Neurological GI: Present: dizziness - Hematologic/Lymphatic Hematologic/Lymphatic pediatric: Present: as per HPI - Musculoskeletal Musculoskeletal ROS GI: Present: as per HPI - Integumentary Integumentary GI: Present: as per HPI - Psychiatric ROS Psychiatric GI: Present: as per HPI - Endocrine Endocrine IM: Present: as per HPI - Constitutional Vitals: Temp Pulse Resp BP Pulse Ox 99.2 F 92 18 108/62 97 03/07/17 11:42 03/07/17 11:42 03/07/17 11:42 03/07/17 11:42 03/07/17 11:42 General appearance: Present: cooperative, A&O X 3, no acute distress, answers questions appropriately - Head Head exam: Present: atraumatic, normocephalic - Eye Eye exam: Present: normal appearance, sclera anicteric - ENT ENT exam: Present: mucous membranes moist Additional comments: Dobhoff in R nostril - Neck Neck exam general surgery: Present: normal inspection, trachea midline - Respiratory Respiratory exam: Present: CTAB - Cardiovascular Cardiovascular exam: Present: RRR, +S1, +S2 - GI/Abdominal GI/Abdominal exam: Present: normal bowel sounds, soft, no peritoneal signs - Rectal Rectal exam: Present: deferred - Extremities Exam Extremities exam: Present: warm - Neurological Exam Neurological exam: Present: no focal deficits - Psychiatric Psychiatric exam: Present: normal affect, normal mood - Skin Skin exam: Present: dry, intact, normal color, warm Results - Labs CBC & Chem 7: 03/07/17 04:27 03/07/17 04:27 Labs: Last Result Calcium 7.7 mg/dL (8.6-10.8) L 03/07/17 04:27 Iron 41 mcg/dL (65-175) L 03/07/17 04:27 % Saturation 24 % (20-55) 03/07/17 04:27 Transferrin 124 mg/dL (174-364) L 03/07/17 04:27 Ferritin 341 ng/ml (22-275) H 03/07/17 04:27 Troponin I 0.01 ng/mL (0-0.03) 03/06/17 23:42 Vitamin B12 285 pg/mL (213-816) 03/07/17 04:27 Folate 7.9 ng/mL (7.0-31.4) 03/07/17 04:27 Stool Occult Blood Negative (Negative) 03/07/17 01:55 Entire Visit Hgb 8.6 g/dL (12.9-16.9) L 03/07/17 04:27 Hct 27.4 % (37.5-50.1) L 03/07/17 04:27 PT 11.6 Seconds (9.4-12.1) 03/06/17 23:42 Ferritin 341 ng/ml (22-275) H 03/07/17 04:27 Total Bilirubin 0.8 mg/dL (0.2-1.2) 03/06/17 23:42 AST 24 Units/L (5-34) 03/06/17 23:42 ALT 32 Units/L (0-55) 03/06/17 23:42 Folate 7.9 ng/mL (7.0-31.4) 03/07/17 04:27 - ABG ABG results: PT/INR, D-dimer PT 11.6 Seconds (9.4-12.1) 03/06/17 23:42 - Impressions Impressions KUB X-Ray 03/07/17 08:52 IMPRESSION: Feeding tube tip projects at the GE junction. It could be advanced. D/ / Jaya Hernandez MD / Jaya Hernandez MD Interpreting Provider: Jaya Hernandez MD Consult Discharge Plan - Plan Instructions: Diabetes Mellitus Type 2 in Adults (DC), Chronic Dysphagia (DC), Chronic Hypertension (DC), Anemia (GEN) Additional Instructions: - Advised to continue NG tube feeds at 45 mL per hour - Patient advised to follow-up with medical oncologist Dr. Goodman - We will need follow-up at [facility] for surgery - Return if symptoms worsen Referrals: Forest Giles MD [Primary Care Provider] - Eladio Goodman MD [Partnered Physician] - 03/15/17 10:00 am <Rancho Jeffers - Last Filed: 03/15/17 14:28> Date of Encounter: 03/07/17 Time of Encounter: 12:00 - Time Spent With Patient Total time spent is greater than 50% in coordination of care (as documented) at patient's floor/unit and/or counseling patient: GI History of Present Illness - Data of Consult Requesting Physician: Timmy North MD - Consult Narrative History of present illness: Mr. Tapia is a 76 year old male - Constitutional Vitals: Temp Pulse Resp BP Pulse Ox 97.8 F 80 14 116/68 95 03/09/17 14:30 03/09/17 14:30 03/09/17 14:30 03/09/17 14:30 03/09/17 14:30 Results - Labs CBC & Chem 7: 03/09/17 05:17 03/09/17 05:17 Labs: Last Result Calcium 7.7 mg/dL (8.6-10.8) L 03/09/17 05:17 Iron 41 mcg/dL (65-175) L 03/07/17 04:27 % Saturation 24 % (20-55) 03/07/17 04:27 Transferrin 124 mg/dL (174-364) L 03/07/17 04:27 Ferritin 341 ng/ml (22-275) H 03/07/17 04:27 Troponin I 0.01 ng/mL (0-0.03) 03/06/17 23:42 Vitamin B12 285 pg/mL (213-816) 03/07/17 04:27 Folate 7.9 ng/mL (7.0-31.4) 03/07/17 04:27 Stool Occult Blood Negative (Negative) 03/07/17 01:55 Entire Visit Hgb 10.9 g/dL (12.9-16.9) L D 03/09/17 05:17 Hct 33.4 % (37.5-50.1) L 03/09/17 05:17 PT 12.0 Seconds (9.4-12.1) 03/08/17 05:02 Ferritin 341 ng/ml (22-275) H 03/07/17 04:27 Total Bilirubin 0.8 mg/dL (0.2-1.2) 03/06/17 23:42 AST 24 Units/L (5-34) 03/06/17 23:42 ALT 32 Units/L (0-55) 03/06/17 23:42 Folate 7.9 ng/mL (7.0-31.4) 03/07/17 04:27 E. coli (PCR) Not Detected (Not Detect) 03/06/17 23:42 - ABG ABG results: PT/INR, D-dimer PT 12.0 Seconds (9.4-12.1) 03/08/17 05:02 - Attending Attestation I personally interviewed and examined Mr. Tapia. He has a history of dysphagia with esophageal cancer S/P XRT 21 fractions and chemotherapy (2 sessions) Has been weak and malnourished from not eating and he has been seen at [facility] in [facility] but, apparently they were unable to place a PEG in him? Will restart his NGT feedings with Glucerna below 45/hr (more than that causes diarrhea). Further recommendations post review of records from [facility]
[2017-03-07] MEDS ORDERED: Magnesium Sulfate 2 GM in D5% in Water 100 ML IVPB ONE (13:30)
[2017-03-07] MEDS ORDERED: Potassium Chloride Elixir 20 MEQ/15 ML UDC PO ONE (13:36)
[2017-03-07] MEDS ORDERED: Potassium Chloride 40 MEQ, Lidocaine 1% 2 ML in D5% in Water 500 ML IVPB ONE (17:01)
--- NOTE | 2017-03-07 17:08 | Electrocardiograph Report ---
[place] [id number] Test Date: 2017-03-06 Pat Name: Janes Tapia Department: 104 Room: 3A41 Gender: M [employer]: JENNY : 1940 Requested By: Ivan Mendieta Order Number: [id number] Reading MD: Lesa Flynn Measurements Intervals [place] Rate: 110 P: 39 MD: 151 QRS: 16 QRSD: 76 T: 44 QT: 352 QTc: 417 Interpretive Statements SINUS TACHYCARDIA ABNORMAL RHYTHM ECG Electronically Signed On 03-07-2017 17:06:39 EDT by Lesa Flynn
[2017-03-07] MEDS: Metoclopramide 10 MG/2 ML VIAL IVP SCH (18:11)
[2017-03-08] MEDS: Insulin LISPRO 300 UNITS/3 ML VIAL SQ SCH ×4 (00:20→19:03)
[2017-03-08] MEDS: Metoclopramide 10 MG/2 ML VIAL IVP SCH ×3 (00:21→17:08)
[2017-03-08] MEDS: Pantoprazole 40 MG in 0.9 % Sodium Chloride Mini Bag 100 ML IVC SCH ×3 (01:50→12:42)
[2017-03-08 05:57] LABS: Hematocrit 22.2 % (37.5-50.1); INR 1.1; Mean Corpuscular HGB Conc 31.5 g/dL (31.6-35.5); Mean Corpuscular Hemoglobin 26.4 pg (28.0-33.3); Mean Corpuscular Volume 83.8 fL (83.0-100.0); Mean Platelet Volume 9.7 fL (9.4-12.4); Platelet Count 131 K/mcL (140-400); Red Blood Count 2.65 M/mcL (4.19-5.50); Red Cell Distribution Width 21.4 % (11.5-14.5)
[2017-03-08 06:11] LABS: BUN/Creatinine Ratio 13 (6-26); Blood Urea Nitrogen 8 mg/dL (8-26); Calcium 6.8 mg/dL (8.6-10.8); Carbon Dioxide 24 mEq/L (19-29); Chloride 111 mEq/L (98-109); Glucose 149 mg/dL (70-99); Magnesium 1.4 mg/dL (1.6-2.6); Osmolality,Calculated 285 (280-300); Sodium 137 mEq/L (136-145); eGFR For African Americans > 60 (> 60); eGFR For Non-African Americans > 60 (> 60)
[2017-03-08] MEDS: *HR* Heparin 5,000 UNIT/ML VIAL SQ SCH ×2 (06:17→17:08)
[2017-03-08 06:36] LABS: Lymphocytes # 0.9 K/mcL (0.6-4.6); Monocytes # 0.1 K/mcL (0.0-1.3); Neutrophils # 1.6 K/mcL (1.6-8.9)
[2017-03-08 06:37] LABS: Platelet Estimate Slight Decrease (Normal)
[2017-03-08 06:38] LABS: Anisocytosis 1+ (Not Present); Microcytosis Present (Not Present); Poikilocytosis 1+ (Not Present); Reactive Lymphocytes Present (Not Present)
--- NOTE | 2017-03-08 09:10 | Oncology Inp Progress Note ---
Date of Encounter: 03/08/17 Time of Encounter: 09:08 (1) Malnutrition Current Visit: Yes Status: Acute Assessment and plan: - Feeding tubes tolerated at rate of 45 cc/h. I expect improvement of his nutritional status if he continues tolerating feedings well. May consider nutritional consult and discuss with speech therapy if PO diet with puree diet is feasible. - As discussed previously, no plans for PEG or J-tube or esophageal stent in view that could complicate surgical procedure. Qualifiers: Malnutrition type: protein-calorie malnutrition Protein-calorie malnutrition severity: unspecified severity Qualified Code(s): E46 - Unspecified protein-calorie malnutrition (2) Dysphagia Current Visit: Yes Status: Acute Assessment and plan: - Management as described in section of malnutrition. Qualifiers: Dysphagia type: other dysphagia Qualified Code(s): R13.19 - Other dysphagia Code(s): R13.10 - Dysphagia, unspecified SNOMED Code(s): 99974751, 236259158 (3) Esophageal cancer Current Visit: Yes Status: Acute Assessment and plan: - No plans for further treatments with chemoradiation, since he has completed most of the planned chemotherapy regimen ( and in view of the poor tolerance and issues related to malnutrition and dysphagia). - Upon discharge, please arrange for short follow up with medical oncologist Dr. Goodman. He will need a PET scan as outpatient and subsequent referral to surgery ( [facility]: Dr. Bauman). Qualifiers: Malignant neoplasm of esophagus location: lower third Qualified Code(s): C15.5 - Malignant neoplasm of lower third of esophagus Code(s): C15.9 - Malignant neoplasm of esophagus, unspecified SNOMED Code(s): 344761804, 361104272 Oncology: Subj Interval history: CC: dysphagia. Now tolerating feeding tubes at rate of 45 cc/h. Tolerating fluids, but has not tried puree or soft diet yet. Denies abdominal pain, nausea, vomiting, diarrhea. ROS: negative for chest pain, fever, shortness of breath. - Constitutional Vitals: Vital Signs Temp Pulse Resp BP Pulse Ox 03/08/17 06:56 98.6 F 97 18 113/66 96 03/08/17 04:26 98.4 F 101 16 119/69 96 03/08/17 00:16 97.7 F 107 16 126/71 94 03/07/17 20:52 97.6 F 100 16 109/70 96 03/07/17 15:22 97.9 F 107 18 119/66 97 03/07/17 11:42 99.2 F 92 18 108/62 97 Intake and Output 03/07/17 03/08/17 03/08/17 23:59 07:59 15:59 Intake Total 1200 / 1200 200 / 200 Output Total 325 / 325 600 / 600 Balance 875 / 875 -400 / -400 Intake: IV Fluids 1200 / 1200 200 / 200 0.9 % Sodium Chloride 1, 1000 / 1000 000 ML @ 100 mls/hr IVC . Q10H DENISE Rx#:[id number] Protonix 40 MG In 0.9 % 200 / 200 200 / 200 Sodium Chloride (Mini-Bag +) 100 ML @ 20 mls/hr IVC .Q5H DENISE Rx#: [id number] Oral 0 / 0 0 / 0 Output: Urine 325 / 325 600 / 600 Other: Meal NPO Percent of Meal Consumed 0% Weight 69.3 kg Blood Glucose* 197 188 Patient Weight 03/08/17 23:59 Weight 69.3 kg - Head Head exam: Present: normal inspection - Neck Neck exam: Present: normal inspection - Respiratory Respiratory exam: Present: CTAB - Cardiovascular Cardiovascular exam: Present: RRR - GI/Abdominal GI/Abdominal exam: Present: normal bowel sounds Oncology: Obj Data - Labs CBC & Chem 7: 03/08/17 05:02 03/08/17 05:02 Labs: Laboratory Results - last 24 hr 03/07/17 03/07/17 03/08/17 11:45 16:47 00:14 WBC RBC Hgb Hct MCV MCH MCHC RDW Plt Count MPV Seg Neutrophils % Lymphocytes % Monocytes % Eosinophils % Neutrophils # Lymphocytes # Monocytes # Eosinophils # Reactive Lymphocytes Platelet Estimate Poikilocytosis Anisocytosis Microcytosis PT INR Sodium Potassium Chloride Carbon Dioxide BUN Creatinine Est GFR ( Amer) Est GFR (Non-Af Amer) BUN/Creatinine Ratio Glucose POC Glucose 139 H 197 H 239 H Calculated Osmolality Calcium Magnesium 03/08/17 03/08/17 03/08/17 05:02 05:02 05:02 WBC 2.7 L RBC 2.65 L Hgb 7.0 L D Hct 22.2 L MCV 83.8 MCH 26.4 L MCHC 31.5 L RDW 21.4 H Plt Count 131 L MPV 9.7 Seg Neutrophils % 60.0 Lymphocytes % 34.0 Monocytes % 5.0 Eosinophils % 1.0 Neutrophils # 1.6 Lymphocytes # 0.9 Monocytes # 0.1 Eosinophils # 0.0 Reactive Lymphocytes Present A Platelet Estimate Slight Decrease L Poikilocytosis 1+ A Anisocytosis 1+ A Microcytosis Present A PT 12.0 INR 1.1 Sodium 137 Potassium 3.0 L Chloride 111 H Carbon Dioxide 24 BUN 8 D Creatinine 0.60 L Est GFR ( Amer) > 60 Est GFR (Non-Af Amer) > 60 BUN/Creatinine Ratio 13 Glucose 149 H POC Glucose Calculated Osmolality 285 Calcium 6.8 L Magnesium 1.4 L 03/08/17 05:45 WBC RBC Hgb Hct MCV MCH MCHC RDW Plt Count MPV Seg Neutrophils % Lymphocytes % Monocytes % Eosinophils % Neutrophils # Lymphocytes # Monocytes # Eosinophils # Reactive Lymphocytes Platelet Estimate Poikilocytosis Anisocytosis Microcytosis PT INR Sodium Potassium Chloride Carbon Dioxide BUN Creatinine Est GFR ( Amer) Est GFR (Non-Af Amer) BUN/Creatinine Ratio Glucose POC Glucose 188 H Calculated Osmolality Calcium Magnesium - Impressions Impressions KUB X-Ray 03/07/17 08:52 IMPRESSION: Feeding tube tip projects at the GE junction. It could be advanced. D/ / Jaya Hernandez MD / Jaya Hernandez MD Interpreting Provider: Jaya Hernandez MD - ABG Interpretation ABG results: PT/INR, D-dimer PT 12.0 Seconds (9.4-12.1) 03/08/17 05:02 Consult Discharge Plan - Plan Referrals: Forest Giles MD [Primary Care Provider] -
[2017-03-08] MEDS: Aspirin 81 MG TAB.CHEW PO SCH (09:33)
[2017-03-08] MEDS: Finasteride 5 MG TABLET PO SCH (09:33)
[2017-03-08] MEDS: 0.9 % Sodium Chloride 1,000 ML IVC SCH (09:41)
[2017-03-08 10:25] LABS: Acinetobacter baumannii by PCR Not Detected (Not Detect); Candida albicans by PCR Not Detected (Not Detect); Candida glabrata by PCR Not Detected (Not Detect); Candida krusei by PCR Not Detected (Not Detect); Candida parapsilosis by PCR Not Detected (Not Detect); Candida tropicalis by PCR Not Detected (Not Detect); Enterococcus by PCR Not Detected (Not Detect); Escherichia coli by PCR Not Detected (Not Detect); Klebsiella oxytoca by PCR Not Detected (Not Detect); Klebsiella pneumoniae by PCR Not Detected (Not Detect); Pseudomonas aeruginosa by PCR Not Detected (Not Detect); Serratia marcescens by PCR Not Detected (Not Detect); Staphylococcus aureus by PCR Not Detected (Not Detect); Streptococcus agalactiae(B)PCR Not Detected (Not Detect); Streptococcus by PCR Not Detected (Not Detect); Streptococcus pneumoniae PCR Not Detected (Not Detect); Streptococcus pyogenes (A) PCR Not Detected (Not Detect); blaKPC Carbapenem-Resist Gene Not Detected (Not Detect); mecA Methicillin-Resist Gene Not Detected (Not Detect); vanA/B Vancomycin-Resist Genes Not Detected (Not Detect)
[2017-03-08] MEDS ORDERED: Magnesium Sulfate 2 GM in D5% in Water 100 ML IVPB ONE (10:54)
[2017-03-08] MEDS ORDERED: Potassium Chloride 40 MEQ, Lidocaine 1% 2 ML in D5% in Water 500 ML IVPB ONE (11:40)
[2017-03-08] MEDS ORDERED: 0.9 % Sodium Chloride 1,000 ML IVC SCH (13:12)
--- NOTE | 2017-03-08 14:06 | Internal Med Progress Note ---
Date of Encounter: 03/08/17 Time of Encounter: 09:10 - Assessment and plan (1) Adenocarcinoma of esophagus Current Visit: No Status: Acute Assessment and plan: Chemotherapy and radiation therapy complete - no plan for further treatment Continue NG tube feeds - tolerated at rate of 45 cc/hr, can tolerate pureed diet Oncology consult - recommendations reviewed, appreciate input Oncology recommends against esophageal stents - as this could complicate any surgical procedure Patient will need to follow up at [facility] for surgery with Dr. Bauman Follow-up appointment with medical oncologist Dr. Goodman and Dr. Savage (2) Anemia Current Visit: Yes Status: Acute Assessment and plan: Acute on chronic anemia - possibly secondary to chemotherapy and possibly dilutional - no active bleeding Type and screen, transfuse 2 units PRBCs Fecal Hemoccult - negative Qualifiers: Anemia type: unspecified type Qualified Code(s): D64.9 - Anemia, unspecified (3) Hypomagnesemia Current Visit: Yes Status: Acute Assessment and plan: Magnesium being replaced (4) Diabetes Current Visit: Yes Status: Acute Assessment and plan: Diabetes mellitus type 2, [id number], hyperglycemia Continue insulin sliding scale, glucose checks Qualifiers: Diabetes mellitus type: type 2 Diabetes mellitus complication status: without complication Diabetes mellitus alf insulin use: without meterman use Qualified Code(s): E11.9 - Type 2 diabetes mellitus without complications (5) CAD (coronary artery disease) Current Visit: Yes Status: Acute Assessment and plan: History of coronary artery disease status post stent - stable Continue Statin, Aspirin, and Plavix No active bleeding Qualifiers: Coronary Disease-Associated Artery/Lesion type: [place] artery [place] vs. transplanted heart: [place] heart Associated angina: without angina Qualified Code(s): I25.10 - Atherosclerotic heart disease of [place] coronary artery without angina pectoris (6) HTN (hypertension) Current Visit: Yes Status: Chronic Assessment and plan: Essential hypertension, controlled, monitor Qualifiers: Hypertension type: essential hypertension Qualified Code(s): I10 - Essential (primary) hypertension (7) DVT prophylaxis Current Visit: Yes Status: Acute Assessment and plan: Continue heparin subcutaneous - Time Spent With Patient 25 - 35 minutes - Subjective Interval history: Examined this morning. Patient is awake and alert. Not in any distress. Denies chest pain or shortness of breath. No nausea or vomiting. NG tube feeds restarted and patient is tolerating well. Patient states he feels better. H&H is lower today and patient will need 2 units PRBC. No fever. Hemodynamically stable. No other acute events or complaints. - Constitutional Vitals: Temp Pulse Resp BP Pulse Ox 98.3 F 89 18 136/66 96 03/08/17 12:17 03/08/17 12:17 03/08/17 12:17 03/08/17 12:17 03/08/17 12:17 General appearance: Present: A&O X 3, pleasant, no acute distress, underweight, answers questions appropriately - Head Head exam: Present: atraumatic - Eye Eye exam: Present: EOMI Additional comments: pallor+ - ENT ENT exam: Present: mucous membranes moist - Respiratory Respiratory exam: Present: CTAB. Absent: rales, rhonchi, wheezes, tachypnea - Cardiovascular Cardiovascular exam: Present: RRR, +S1, +S2 - GI/Abdominal GI/Abdominal exam: Present: soft. Absent: distended, firm, guarding, tenderness - Extremities Exam Extremities exam: Present: radial pulses palpable and symmetrical. Absent: cyanotic, pedal edema - Neurological Exam Neurological exam: Present: alert, oriented X3, no focal deficits. Absent: facial droop, speech deficit Internal Medicine: Result - Labs CBC & Chem 7: 03/08/17 05:02 03/08/17 05:02 Labs: Short CBC 03/08/17 Range/Units 05:02 WBC 2.7 L (4.3-11.1) K/mcL Hgb 7.0 L D (12.9-16.9) g/dL Hct 22.2 L (37.5-50.1) % Plt Count 131 L (140-400) K/mcL Neutrophils # 1.6 (1.6-8.9) K/mcL BMP 03/08/17 05:02 Sodium 137 Potassium 3.0 L Chloride 111 H Carbon Dioxide 24 BUN 8 D Creatinine 0.60 L Glucose 149 H Calcium 6.8 L - ABG Interpretation ABG results: PT/INR, D-dimer PT 12.0 Seconds (9.4-12.1) 03/08/17 05:02 Consult Discharge Plan - Plan Referrals: Forest Giles MD [Primary Care Provider] -
[2017-03-08] MEDS ORDERED: 0.9 % Sodium Chloride 250 ML ONE ×2 (15:12→21:33)
[2017-03-08] MEDS: Pantoprazole 40 MG VIAL IVP SCH (17:07)
--- NOTE | 2017-03-08 18:30 | Event Note ---
Date of Encounter: 03/08/17 Time of Encounter: 18:00 Patient had a Dobbhoff tube in place in [place] now the tube is clogged. Try to unclog the tube with a brush and also with the savory wire but was unsuccessful. The clogged tube remove any new tube was placed. Recommendation: KUB confirm the position.
[2017-03-09] MEDS: Metoclopramide 10 MG/2 ML VIAL IVP SCH ×2 (00:24→10:41)
[2017-03-09] MEDS: Insulin LISPRO 300 UNITS/3 ML VIAL SQ SCH ×3 (00:27→12:13)
[2017-03-09 05:48] LABS: Basophils % 0.6 %; Eosinophils % 1.2 %; Hematocrit 33.4 % (37.5-50.1); Immature Granulocytes % 0.6 % (0-4); Lymphocytes # 1.7 K/mcL (0.6-4.6); Lymphocytes % 48.7 %; Mean Corpuscular HGB Conc 32.6 g/dL (31.6-35.5); Mean Corpuscular Hemoglobin 27.4 pg (28.0-33.3); Mean Corpuscular Volume 83.9 fL (83.0-100.0); Monocytes # 0.3 K/mcL (0.0-1.3); Monocytes % 7.8 %; Neutrophils # 1.4 K/mcL (1.6-8.9); Platelet Count 140 K/mcL (140-400); Red Blood Count 3.98 M/mcL (4.19-5.50); Red Cell Distribution Width 20.2 % (11.5-14.5); Segmented Neutrophils % 41.1 %
[2017-03-09 05:53] LABS: Hemoglobin 10.9 g/dL (12.9-16.9)
[2017-03-09 05:58] LABS: BUN/Creatinine Ratio 9 (6-26); Blood Urea Nitrogen 6 mg/dL (8-26); Calcium 7.7 mg/dL (8.6-10.8); Carbon Dioxide 25 mEq/L (19-29); Chloride 106 mEq/L (98-109); Glucose 179 mg/dL (70-99); Magnesium 1.7 mg/dL (1.6-2.6); Osmolality,Calculated 284 (280-300); Potassium 3.2 mEq/L (3.5-4.5); Sodium 136 mEq/L (136-145); eGFR For African Americans > 60 (> 60); eGFR For Non-African Americans > 60 (> 60)
[2017-03-09 06:11] LABS: Platelet Estimate Slight Decrease (Normal)
[2017-03-09 06:12] LABS: Poikilocytosis 1+ (Not Present)
[2017-03-09 06:13] LABS: Anisocytosis 2+ (Not Present); Microcytosis Present (Not Present); Polychromasia 1+ (Not Present); Reactive Lymphocytes Present (Not Present)
[2017-03-09] MEDS: *HR* Heparin 5,000 UNIT/ML VIAL SQ SCH (07:26)
[2017-03-09] MEDS: Pantoprazole 40 MG VIAL IVP SCH (07:30)
[2017-03-09] MEDS: Finasteride 5 MG TABLET PO SCH (10:41)
[2017-03-09] MEDS: Aspirin 81 MG TAB.CHEW PO SCH (10:41)
--- NOTE | 2017-03-09 13:37 | Discharge Summary ---
Date of Encounter: 03/09/17 Time of Encounter: 11:50 - Discharge Diagnosis (1) Adenocarcinoma of esophagus Priority: Primary Status: Acute Comments: Chemotherapy and radiation therapy complete - no plan for further treatment Continue NG tube feeds - tolerated at rate of 45 cc/hr, can tolerate pureed diet Oncology consult - recommendations reviewed, appreciate input Oncology recommends against esophageal stents - as this could complicate any surgical procedure Dobbhoff Tube replaced by Dr. Art - tube feeds continued Patient will need to follow up at [facility] for surgery with Dr. Bauman Follow-up appointment with medical oncologist Dr. Goodman at [place] and Dr. Savage Patient will also need a PET scan as outpatient (2) Anemia Priority: Primary Status: Acute Comments: Acute on chronic anemia - possibly secondary to chemotherapy and possibly dilutional - no active bleeding status post 2 units PRBCs transfusion Fecal Hemoccult - negative H&H now improved and stable - 10.9 and 33.4, no active bleeding Follow-up with oncology as outpatient, repeat CBC in 1 week Qualifiers: Anemia type: unspecified type Qualified Code(s): D64.9 - Anemia, unspecified (3) Hypomagnesemia Priority: Secondary Status: Acute Comments: Mag replaced (4) Diabetes Priority: Secondary Status: Chronic Comments: Diabetes mellitus type 2, [id number], hyperglycemia Continue regular home meds Qualifiers: Diabetes mellitus type: type 2 Diabetes mellitus complication status: without complication Diabetes mellitus half-way insulin use: 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 transplanted heart: [place] heart Associated angina: without angina Qualified Code(s): I25.10 - Atherosclerotic heart disease of [place] coronary artery without angina pectoris (6) HTN (hypertension) Priority: Secondary Status: Chronic Comments: Essential hypertension, controlled, monitor Continue home dose of losartan and metoprolol Qualifiers: Hypertension type: essential hypertension Qualified Code(s): I10 - Essential (primary) hypertension - Discharge Medications Home Medications: RX: Aspirin 81 mg PO DAILY 11/04/16 [History] RX: Clopidogrel [Plavix] 75 mg PO DAILY 11/04/16 [History] RX: Doxazosin Mesylate [Cardura] 2 mg PO HS 11/04/16 [History] RX: Finasteride [Proscar] 5 mg PO DAILY 11/04/16 [History] RX: Losartan [Cozaar] 25 mg PO DAILY 11/04/16 [History] RX: Metformin HCl [Glucophage] 1,000 mg PO BID 11/04/16 [History] RX: Metoprolol [Lopressor] 50 mg PO BID 11/04/16 [History] RX: Mupirocin Calcium [Bactroban] 1 appl TP TID 11/04/16 [History] RX: Pantoprazole Sodium [Protonix] 40 mg PO DAILY 11/04/16 [History] RX: Simvastatin [Zocor] 40 mg PO HS 11/04/16 [History] RX: Sitagliptin Phosphate [Januvia] 50 mg PO DAILY 11/04/16 [History] RX: Sucralfate [Carafate] 1 gm PO QID #1000 ml 12/20/16 [Rx] RX: Travoprost [Travatan Z] 5 ml OP DAILY 12/20/16 [History] RX: Metoclopramide HCl 5 mg PO QIDAC #120 tablet 01/03/17 [Rx] RX: Dorzolamide/Timolol/Pf [Cosopt Pf Eye Drops] 1 each OP BID 01/12/17 [History ] RX: Docusate [Colace] 100 mg PO BID #60 capsule 01/16/17 [Rx] RX: Magic Mouthwash [Magic Mouthwash BLM] 10 ml PO QID PRN #473 ml 02/07/17 [Rx] RX: Morphine Sulfate [Morphine Oral Solution] 5 ml PO Q4H PRN #250 ml 02/20/17 [ Rx] Allergies/Adverse Reactions: 3 Allergy/AdvReac Type Severity Reaction Status Date / Time No Known Allergies Allergy Verified 02/20/17 09:08 Date of admission: 03/08/17 14:01 Primary care physician: Forest Giles MD Anticipated date of discharge: 03/09/17 - Patient Status Disposition: Transfer SNF Condition: Fair Functional capacity at discharge: uses cane/walker Overall status at discharge: patient is progressing back to baseline - Discharge Instructions Instructions: Diabetes Mellitus Type 2 in Adults (DC), Chronic Dysphagia (DC), Chronic Hypertension (DC), Anemia (GEN) Follow Up With: Forest Giles MD [Primary Care Provider] - Eladio Goodman MD [Partnered Physician] - 03/15/17 10:00 am Additional Instructions: - Advised to continue NG tube feeds at 45 mL per hour - Patient advised to follow-up with medical oncologist Dr. Goodman - We will need follow-up at [facility] for surgery - Return if symptoms worsen - Diet and Activity Activity: as per physical therapy, increase activity as tolerated Diet: advance to your usual diet (Continue NG tube feeds at 45 mL/h) Hospital course: Mr. Tapia is a 76 year old male with past medical history of arthritis, coronary artery disease, diabetes, GERD, hypertension and esophageal cancer. Patient [facility] to the ED from [facility] for poor by mouth intake and dizziness. Patient was recently admitted at [facility] for esophageal cancer. Patient had NG feeding tube placed. He was initially hypotensive and also had some nausea and vomiting. Patient states that his tube feeds were increased to 75 mL per hour and that caused his nausea and vomiting. Patient states his tube feeds should be at 45 mL/h ideally. Initial plans for esophageal stent placement and J-tube placement were canceled as it could possibly complicated any surgical procedure in the future. Patient as completed neoadjuvant chemoradiation. He needs restaging PET scan as outpatient. He will need to follow-up with his surgical oncologist at [facility] for surgery. Patient has been explained that he will also need to follow up with Dr. Goodman, medical oncology soon after discharge. Patient was restarted on tube feeds at 45 mL per hour. His tube was then clogged, and could not be unclogged. Gastroenterology has evaluated the patient and the patient's Dobbhoff feeding tube was replaced. Tolerating tube feeds well. No other acute events or complications during his stay in the hospital. Patient did have some mild diarrhea, which he says is chronic. Patient states he feels better and seems to be back at baseline. Patient also had a drop in his H&H. He required 2 units PRBCs transfusion. H&H is now improved and stable. Anemia is likely due to chemotherapy radiation and possibly dilutional. Fecal Hemoccult is negative and patient does not have any active bleeding. Patient has been About his condition and plan of care in detail. He understood and agreed. He has been advised to follow-up with his medical oncologist Dr. Goodman and also with his surgical oncologist at [facility]. No family members at the time of discharge. No other acute events or complications during his stay in the hospital. Patient is able to tolerate pureed diets by mouth. He is being discharged in a stable condition. - Time Spent with Patient Total time spent providing and/or coordinating discharge services: Greater than 30 minutes - Constitutional Vitals: Temp Pulse Resp BP Pulse Ox 98.3 F 78 14 131/71 96 03/09/17 10:40 03/09/17 10:40 03/09/17 10:40 03/09/17 10:40 03/09/17 10:40 General appearance: Present: A&O X 3, pleasant, no acute distress, underweight, answers questions appropriately - Head Head exam: Present: atraumatic - Eye Eye exam: Present: EOMI - ENT ENT exam: Present: mucous membranes moist - Respiratory Respiratory exam: Present: CTAB. Absent: rales, rhonchi, wheezes, tachypnea - Cardiovascular Cardiovascular exam: Present: RRR, +S1, +S2 - GI/Abdominal GI/Abdominal exam: Present: soft. Absent: distended, firm, guarding, tenderness - Extremities Exam Extremities exam: Present: radial pulses palpable and symmetrical. Absent: calf tenderness, cyanotic, pedal edema - Neurological Exam Neurological exam: Present: alert, oriented X3, no focal deficits. Absent: facial droop, speech deficit
--- NOTE | 2017-03-09 13:38 | Oncology Inp Progress Note ---
Date of Encounter: 03/09/17 Time of Encounter: 12:00 (1) Malnutrition Current Visit: Yes Status: Acute Assessment and plan: - I appreciate primary team care. Feeding tube replaced, currently functional at rate of 45 cc/h - As discussed previously, no plans for PEG or J-tube or esophageal stent in view that could complicate surgical procedure. 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 He reports significant improvement of his fatigue after receiving two PRBC yesterday. His hematocrit responded appropriately, increasing from 22 to 33 post transfusion. Qualifiers: Qualified Code(s): E46 - Unspecified protein-calorie malnutrition (2) Esophageal cancer Current Visit: Yes Status: Acute Assessment and plan: - From the oncology point of view patient can be discharged back to SNF rehab, and there is not need for further inpatient procedures. - I again explained to the patient the rationale to avoid further chemoradiation treatments (In view that he already completed most of it and associated poor tolerance to it). - Upon discharge, please arrange for short follow up with medical oncologist Dr. Goodman, who will arrange for outpatient PET scan. - At this time I'll sign off, please call us if questions arise. Qualifiers: Qualified Code(s): C15.5 - Malignant neoplasm of lower third of esophagus Code(s): C15.9 - Malignant neoplasm of esophagus, unspecified SNOMED Code(s): 906116551, [id number] Oncology: Subj Interval history: Dysphagia: Feeding tube was replaced after prior one got occluded. Currently feeding tube is functional with rate approximately 45 cc. ROS: denies pain, nausea, recent vomiting, fever, chills. - Constitutional Vitals: Vital Signs Temp Pulse Resp BP Pulse Ox 03/09/17 10:40 98.3 F 78 14 131/71 96 03/09/17 06:45 98.4 F 77 16 132/57 97 03/09/17 03:52 98.3 F 85 14 129/71 97 03/09/17 02:28 98.3 F 86 16 130/72 95 03/08/17 23:40 99.2 F 89 14 141/67 96 03/08/17 22:50 98.8 F 83 16 155/79 95 03/08/17 22:35 98.5 F 90 16 148/74 95 03/08/17 18:53 97.7 F 92 16 136/56 97 03/08/17 15:44 97.7 F 93 16 146/69 03/08/17 15:29 98.1 F 87 16 131/72 Intake and Output 03/08/17 03/09/17 03/09/17 23:59 07:59 15:59 Intake Total 420 / 420 470 / 470 100 / 100 Output Total 1025 / 1025 650 / 650 325 / 325 Balance -605 / -605 -180 / -180 -225 / -225 Intake: Oral 120 / 120 120 / 120 0 / 0 Blood Product 300 / 300 350 / 350 Rbcs Leuko Poor As-1 300 / 300 Unit [id number] Rbcs Leuko Poor As-1 0 / 0 350 / 350 Unit [id number] Free Water Intake Amount 100 / 100 Output: Urine 1025 / 1025 650 / 650 325 / 325 Other: Meal Tube Feed Breakfast Percent of Meal Consumed 0% # Voids 1 Weight 68.991 kg Blood Glucose* 144 159 211 Patient Weight 03/09/17 23:59 Weight 68.991 kg - Head Head exam: Present: normal inspection - ENT Additional comments: Feeding tube in place - Neck Neck exam: Present: normal inspection - Cardiovascular Cardiovascular exam: Present: RRR - GI/Abdominal GI/Abdominal exam: Present: normal bowel sounds Oncology: Obj Data - Labs CBC & Chem 7: 03/09/17 05:17 03/09/17 05:17 Labs: Laboratory Results - last 24 hr 03/08/17 03/08/17 03/09/17 19:00 23:38 05:17 WBC 3.5 L RBC 3.98 L Hgb 10.9 L D Hct 33.4 L MCV 83.9 MCH 27.4 L MCHC 32.6 RDW 20.2 H Plt Count 140 MPV 9.0 L Immature Gran % 0.6 Seg Neutrophils % 41.1 Lymphocytes % 48.7 Monocytes % 7.8 Eosinophils % 1.2 Basophils % 0.6 Neutrophils # 1.4 L Lymphocytes # 1.7 Monocytes # 0.3 Eosinophils # 0.0 Basophils # 0.0 Reactive Lymphocytes Present A Platelet Estimate Slight Decrease L Polychromasia 1+ A Poikilocytosis 1+ A Anisocytosis 2+ A Microcytosis Present A Sodium Potassium Chloride Carbon Dioxide BUN Creatinine Est GFR ( Amer) Est GFR (Non-Af Amer) BUN/Creatinine Ratio Glucose POC Glucose 155 H 144 H Calculated Osmolality Calcium Magnesium 03/09/17 03/09/17 03/09/17 05:17 05:21 11:33 WBC RBC Hgb Hct MCV MCH MCHC RDW Plt Count MPV Immature Gran % Seg Neutrophils % Lymphocytes % Monocytes % Eosinophils % Basophils % Neutrophils # Lymphocytes # Monocytes # Eosinophils # Basophils # Reactive Lymphocytes Platelet Estimate Polychromasia Poikilocytosis Anisocytosis Microcytosis Sodium 136 Potassium 3.2 L Chloride 106 Carbon Dioxide 25 BUN 6 L Creatinine 0.68 L Est GFR ( Amer) > 60 Est GFR (Non-Af Amer) > 60 BUN/Creatinine Ratio 9 Glucose 179 H POC Glucose 159 H 211 H Calculated Osmolality 284 Calcium 7.7 L Magnesium 1.7 - Impressions Impressions KUB X-Ray 03/08/17 15:23 IMPRESSION: 1. The Dobhoff feeding tube with its tip in the region of the gastroesophageal junction. This does need to be advanced into the stomach prior to use. D/ / Rajendra Gimenez MD / Rajendra Gimenez MD Interpreting Provider: Rajendra Gimenez MD X-Ray 03/08/17 19:12 IMPRESSION: Feeding tube tip projects over the proximal duodenum. D/ / Yung Cannon MD / Yung Cannon MD Interpreting Provider: Yung Cannon MD - ABG Interpretation ABG results: PT/INR, D-dimer PT 12.0 Seconds (9.4-12.1) 03/08/17 05:02 Consult Discharge Plan - Plan Additional Instructions: - Advised to continue NG tube feeds at 45 mL per hour - Patient advised to follow-up with medical oncologist Dr. Goodman - We will need follow-up at [facility] for surgery - Return if symptoms worsen Referrals: Forest Giles MD [Primary Care Provider] - Eladio Goodman MD [Partnered Physician] -
--- NOTE | 2017-03-09 13:48 | Physician Discharge Referral ---
ExtendedCare Referral Info Provider in Charge after Transfer: PCP Institutional Level of Care: Skilled - Diagnosis (1) Adenocarcinoma of esophagus Priority: Primary Status: Acute (2) Anemia Priority: Primary Status: Acute (3) Hypomagnesemia Priority: Primary Status: Acute (4) Diabetes Priority: Secondary Status: Chronic (5) CAD (coronary artery disease) Priority: Secondary Status: Chronic (6) HTN (hypertension) Priority: Secondary Status: Chronic Prognosis: Fair Aware of Diagnosis: Patient, Family Aware of Prognosis: Patient, Family - Transfer Medications Home Medications: Aspirin 81 mg PO DAILY 11/04/16 [History] Clopidogrel [Plavix] 75 mg PO DAILY 11/04/16 [History] Doxazosin Mesylate [Cardura] 2 mg PO HS 11/04/16 [History] Finasteride [Proscar] 5 mg PO DAILY 11/04/16 [History] Losartan [Cozaar] 25 mg PO DAILY 11/04/16 [History] Metformin HCl [Glucophage] 1,000 mg PO BID 11/04/16 [History] Metoprolol [Lopressor] 50 mg PO BID 11/04/16 [History] Mupirocin Calcium [Bactroban] 1 appl TP TID 11/04/16 [History] Pantoprazole Sodium [Protonix] 40 mg PO DAILY 11/04/16 [History] Simvastatin [Zocor] 40 mg PO HS 11/04/16 [History] Sitagliptin Phosphate [Januvia] 50 mg PO DAILY 11/04/16 [History] Sucralfate [Carafate] 1 gm PO QID #1000 ml 12/20/16 [Rx] Travoprost [Travatan Z] 5 ml OP DAILY 12/20/16 [History] Metoclopramide HCl 5 mg PO QIDAC #120 tablet 01/03/17 [Rx] Dorzolamide/Timolol/Pf [Cosopt Pf Eye Drops] 1 each OP BID 01/12/17 [History] Docusate [Colace] 100 mg PO BID #60 capsule 01/16/17 [Rx] Magic Mouthwash [Magic Mouthwash BLM] 10 ml PO QID PRN #473 ml 02/07/17 [Rx] Morphine Sulfate [Morphine Oral Solution] 5 ml PO Q4H PRN #250 ml 02/20/17 [Rx] Allergies/Adverse Reactions: 3 Allergy/AdvReac Type Severity Reaction Status Date / Time No Known Allergies Allergy Verified 02/20/17 09:08 - Respiratory Orders Smoking Cessation: Smoking cessation has been advised. For more information, call the [place] Tobacco Quit Line at 7-073-AGUE-NOW. - Lab Orders Lab Orders: CBC - Ancillary Orders May use pressure relief devices daily prn - Advance Directives Code Status: Full Code - Mobility Orders Ambulate - Rehabiliation Orders Rehab Orders: ROM Exercises, Evaluation for Physical Therapy, Evaluation for Occupational Therapy - Treatments Skin tear care topically daily PRN per policy - Diet Orders Regular (Continue NG tube feeds at 45 mL per hour) CERTIFICATION: I certify that the transfer of the above named patient to an Extended Care Facility is necessary for the continuing treatment of the diagnosis listed. The above information is true and accurate reflection of patient's current condition. Confidential - Redisclosure prohibited without a patient's written consent.
[2017-03-09 16:15] VITALS: BP 116/68
== END 2017-03-09 16:37 | DRG 375 ==
LOC: EMEROO 22:57 → 3ANU 22:57
PROVIDERS: ADMIT Internal Medicine; ATTEND Internal Medicine